=== PATIENT | female | born 1995 | race Caucasian/White ===

== ENCOUNTER 2018-08-02 13:44 | Emergency (ER) | payer OTHER ==
[2018-08-02 13:55] VITALS: TEMP 98.1
[2018-08-02] MEDS ORDERED: DiphenhydrAMINE 50 mg/ml Inj IVP STA (13:55)
[2018-08-02] MEDS ORDERED: Sodium Chloride 0.9% 1,000 ML IV ONE (13:55)
[2018-08-02 14:10] LABS: BASO # 0.1 K/uL (0.0-0.2); BASO % 0.7 % (0.0-2.0); EOS # 0.1 K/uL (0.0-0.7); EOS % 1.2 % (0.0-4.0); HEMOGLOBIN 14.4 g/dL (11.0-16.0); LYMPH # 3.4 K/uL (1.0-4.3); MEAN CELL VOLUME 79.8 fL (81.0-99.0); MEAN CORPUSCULAR HEMOGLOBIN 27.4 pg (27.0-31.0); MEAN CORPUSCULAR HGB CONC 34.4 g/dL (33.0-37.0); MEAN PLATELET VOLUME 8.2 fL (7.2-11.7); MONO # 0.5 K/uL (0.0-0.8); MONO % 6.1 % (0.0-10.0); NEUT # 4.3 K/uL (1.8-7.0); NRBC % 0.1 % (0.0-2.0); RBC 5.24 Mil/uL (3.80-5.20); RED CELL DISTRIBUTION WIDTH 13.1 % (11.5-14.5); WHITE BLOOD COUNT 8.3 K/uL (4.8-10.8)
[2018-08-02] MEDS ORDERED: DiphenhydrAMINE 50 mg/ml Inj ONE (14:16)
[2018-08-02 14:26] LABS: ALB/GLOB RATIO 1.2 (1.0-2.1); ALBUMIN 4.5 g/dL (3.5-5.0); ALT/SGPT 21 U/L (9-52); AST/SGOT 35 U/L (14-36); BLOOD UREA NITROGEN 13 mg/dL (7-17); CALCIUM 8.9 mg/dl (8.6-10.4); GFR NON-AFRICAN AMERICAN > 60
--- NOTE | 2018-08-02 14:26 | C.PDOC ---
History Of Present Illness Patient VIELKA from urgent care, was being seen there for headache x several days. Patient had witnessed tonic clonic seizure when EMS arrived to bring her to ED. History limited due to clinical condition. Time Seen by Provider: 08/02/18 13:49 Chief Complaint (Nursing): Seizure History Per: EMS History/Exam Limitations: clinical condition Number Of Seizures: One Quality Of Seizure: Generalized Past Medical History Reviewed: Historical Data, Nursing Documentation, Vital Signs Vital Signs: Last Vital Signs Temp 98.1 F 08/02/18 13:47 Pulse 104 H 08/02/18 13:47 Resp 18 08/02/18 13:47 BP 125/93 H 08/02/18 13:47 Pulse Ox 100 08/02/18 13:47 - Medical History PMH: Seizures Family History: States: No Known Family Hx - Social History Hx Alcohol Use: No Hx Substance Use: No Review Of Systems Review Of Systems: ROS cannot be obtained secondary to pt's inabilty to answer questions. Physical Exam - Physical Exam Appears: Non-toxic, Other (post-ictal) Head: Atraumatic, Normacephalic Eye(s): bilateral: Other (wide and reactive pupils B/L ) Oral Mucosa: Moist Cardiovascular: Rhythm Regular (tachycardic ) Respiratory: Normal Breath Sounds, No Rales, No Rhonchi, No Wheezing Gastrointestinal/Abdominal: Normal Exam, Bowel Sounds, Soft, No Tenderness Extremity: Bilateral: Atraumatic Neurological/Psych: Other (post-ictal) ED Course And Treatment - Laboratory Results Result Diagrams: 08/02/18 14:06 08/02/18 14:06 O2 Sat by Pulse Oximetry: 100 (RA) Pulse Ox Interpretation: Normal - CT Scan/US CT HEAD Other Rad Studies (CT/US): Read By Radiologist, Radiology Report Reviewed CT/US Interpretation: Accession No. : [id number]. Patient Name / ID : ROSEANNE ROSALES / [id number]. Exam Date : 08/02/2018 14:50:21 ( Approved ). Study Comment : Sex / Age : F / 23Y. Creator : Joanie Prasad V. Dictator : Joanie Prasad V. Rebeamer : [employer] : Joanie Prasad V. Approver2 : Report Date : 08/02/2018 15:26:53. My Comment : . Date of service: 08/02/2018. PROCEDURE: CT HEAD WITHOUT CONTRAST. HISTORY: SEVERE HEADACHE, SEIZURE. COMPARISON: None available. TECHNIQUE: Axial computed tomography images were obtained through the head/brain without intravenous contrast. Radiation dose: Total exam DLP = 1167.38 mGy-cm. This CT exam was performed using one or more of the following dose reduction techniques: Automated exposure control, adjustment of the mA and/or kV according to patient size, and/or use of iterative reconstruction technique. FINDINGS: HEMORRHAGE: No intracranial hemorrhage. BRAIN: No mass effect or edema. Sulcal prominence compatible with cerebral atrophy greater than that expected for a 23-year-old. No gross microvascular ischemic changes appreciated. VENTRICLES: Unremarkable. No hydrocephalus. CALVARIUM: Unremarkable. PARANASAL SINUSES: Unremarkable as visualized. No significant inflammatory changes. MASTOID AIR CELLS: Unremarkable as visualized. No inflammatory changes. OTHER FINDINGS: None. IMPRESSION: No intracranial hemorrhage or mass effect. No significant appearing paranasal sinus inflammatory changes. Cerebral atrophy greater than expected for patient's 23 years of age. Can be seen with seizure medication-correlate clinically Progress Note: Blood work, UA, CT head ordered and reviewed. 2:15pm- Patient now awake and alert, admits to history of migraine and seizure disoder, typically takes Keppra daily, states she has been compliant with her medication. Typically has seizure every 2-3 months, neurologist is in [place]. Disposition Counseled Patient/Family Regarding: Studies Performed, Diagnosis, Need For Followup, Rx Given - Disposition Referrals: Wilber Fountain MD [Staff Provider] - Disposition: HOME/ ROUTINE Disposition Time: 16:25 Condition: STABLE Additional Instructions: FOLLOW UP WITH NEUROLOGY WITHIN 1 WEEK USE MEDICATIONS DIRECTED/NEEDED RETURN TO ER IF SYMPTOMS WORSEN Prescriptions: Acetaminophen/Butalbital/Caf [Fioricet] 1 tab PO TID PRN #20 tab PRN Reason: Headache clonazePAM [clonAZEPAM] 1 mg PO BID PRN #15 tab PRN Reason: seizure, headache levETIRAcetam [Keppra] 1,000 mg PO DAILY #60 tab Instructions: Seizures, Adult (DC), Headache, Adult (DC) Forms: [employer] (Ethiopian) Print Language: MEXICAN - Clinical Impression Clinical Impression: Seizure, Headache
--- NOTE | 2018-08-02 15:30 | CT ---
Date of service: 08/02/2018 PROCEDURE: CT HEAD WITHOUT CONTRAST. HISTORY: SEVERE HEADACHE, SEIZURE COMPARISON: None available. TECHNIQUE: Axial computed tomography images were obtained through the head/brain without intravenous contrast. Radiation dose: Total exam DLP = 1167.38 mGy-cm. This CT exam was performed using one or more of the following dose reduction techniques: Automated exposure control, adjustment of the mA and/or kV according to patient size, and/or use of iterative reconstruction technique. FINDINGS: HEMORRHAGE: No intracranial hemorrhage. BRAIN: No mass effect or edema. Sulcal prominence compatible with cerebral atrophy greater than that expected for a 23-year-old. No gross microvascular ischemic changes appreciated VENTRICLES: Unremarkable. No hydrocephalus. CALVARIUM: Unremarkable. PARANASAL SINUSES: Unremarkable as visualized. No significant inflammatory changes. MASTOID AIR CELLS: Unremarkable as visualized. No inflammatory changes. OTHER FINDINGS: None. IMPRESSION: No intracranial hemorrhage or mass effect. No significant appearing paranasal sinus inflammatory changes. Cerebral atrophy greater than expected for patient's 23 years of age. Can be seen with seizure medication-correlate clinically
[2018-08-02] MEDS ORDERED: Sodium Chloride 0.9% 1,000 ML ONE (16:25)
[2018-08-02 16:30] LABS: HCG,QUALITATIVE URINE NEGATIVE (NEGATIVE)
[2018-08-02 16:39] LABS: SQUAMOUS EPITHIAL 6 /hpf (0-5); URINE AMORPHOUS SEDIMENT RARE /ul (<OCC); URINE BACTERIA RARE (<OCC); URINE BILIRUBIN NEGATIVE (NEGATIVE); URINE BLOOD 3+ (NEGATIVE); URINE CLARITY Clear (Clear); URINE COLOR Yellow (YELLOW); URINE GLUCOSE (UA) NORMAL (Normal); URINE LEUKOCYTE ESTERASE TRACE Leu/uL (Negative); URINE PROTEIN NEGATIVE (NEGATIVE); URINE UROBILINOGEN NORMAL mg/dL (0.2-1.0)
[2018-08-02 16:43] LABS: BARBITURATES, UR NEGATIVE (NEGATIVE); BENZODIAZEPINES, UR NEGATIVE (NEGATIVE); OPIATES, UR NEGATIVE (NEGATIVE); PHENCYCLIDINE, UR NEGATIVE (NEGATIVE)
[2018-08-02 17:14] VITALS: BP 106/72; PULSE 87; RESP 16; O2SAT 98
== END 2018-08-02 17:11 | disposition home or self-care (01) ==
LOC: C.ER 13:44
DX: R56.9 Unspecified convulsions (principal); R51 Headache
CPT/HCPCS: 70450; 80053; 80177; 80324; 80345; 80346; 80349; 80353; 80358; 80361; 81001; 82550; 82948; 83992; 84703; 85025; 96361; 96374; 96375; 99285; J1200; J1885; J2060; J2765; J7030

== ENCOUNTER 2018-11-04 15:09 | Emergency (ER) | payer OTHER ==
[2018-11-04 15:13] VITALS: BP 121/87; PULSE 103; RESP 20; TEMP 98.7; O2SAT 100
--- NOTE | 2018-11-04 15:43 | C.PDOC ---
History Of Present Illness 23 y/o female with hx seizures, on keppra, sent to ED from Dr Fountain (neurologist) office for right wrist pain. pt was just diagnosed with carpal tunnel in the wrist and Dr Fountain requesting pt get iv toradol for pain in ED. pt has rx for wrist splints and for gabapentin. denies any trauma to wrist. . Time Seen by Provider: 11/04/18 15:20 Chief Complaint (Nursing): Upper Extremity Problem/Injury History Per: Patient History/Exam Limitations: no limitations Onset/Duration Of Symptoms: Days Current Symptoms Are (Timing): Still Present Quality: "Pain" Severity: Moderate Pain Scale Rating Of: 7 Exacerbating Factor(s): Movement, Worse At Night Past Medical History Reviewed: Historical Data, Nursing Documentation, Vital Signs Vital Signs: Last Vital Signs Temp 98.7 F 11/04/18 15:11 Pulse 103 H 11/04/18 15:11 Resp 20 11/04/18 15:11 BP 121/87 11/04/18 15:11 Pulse Ox 100 11/04/18 15:11 - Medical History PMH: Seizures Family History: States: Unknown Family Hx - Social History Hx Alcohol Use: No Hx Substance Use: No - Immunization History Hx Tetanus Toxoid Vaccination: No Hx Influenza Vaccination: Yes Hx Pneumococcal Vaccination: No Review Of Systems Constitutional: Negative for: Fever, Chills ENT: Negative for: Throat Pain Cardiovascular: Negative for: Chest Pain Respiratory: Negative for: Cough, Shortness of Breath Gastrointestinal: Negative for: Vomiting, Abdominal Pain Skin: Negative for: Rash Neurological: Negative for: Weakness, Numbness Physical Exam - Physical Exam Appears: Non-toxic, No Acute Distress Skin: Warm, Dry Extremity: Other (tender to right anterior wrist area, +tinel and +phalens sign. no swelling, erythema or warmth noted. from of right wrist, elbow and shoulder. ) Pulses: Right Radial: Normal Neurological/Psych: Oriented x3, Normal Speech, Normal Cognition, Normal Motor, Normal Sensation ED Course And Treatment O2 Sat by Pulse Oximetry: 100 Medical Decision Making Medical Decision Making: pt with right wrist pain 2/2 carpal tunnel, sent to ED for toradol from neurologist office. upreg neg. pt has rx for gabapentin and wrist splint. Disposition Counseled Patient/Family Regarding: Diagnosis, Need For Followup - Disposition Referrals: Wilber Fountain MD [Staff Provider] - Disposition: HOME/ ROUTINE Disposition Time: 16:14 Condition: GOOD Additional Instructions: Take medications as prescribed by Dr Fountain and wear wrist splint as directed. Follow up with Dr Fountain. Return to ER for any worse symptoms. Instructions: Carpal Tunnel Syndrome (DC) Forms: [employer] (E[place]ian) - Clinical Impression Clinical Impression: Carpal tunnel syndrome
== END 2018-11-04 16:20 | disposition home or self-care (01) ==
LOC: C.ER 15:09
DX: G56.01 Carpal tunnel syndrome, right upper limb (principal); R56.9 Unspecified convulsions
CPT/HCPCS: 81025; 96372; 99284; J1885